=== PATIENT | female | born 1930 | race Caucasian/White ===

== ENCOUNTER 2017-02-22 07:54 | Emergency (ER) | payer MEDICARE, OTHER ==
[~2017-02-22] VITALS: Ht 160 cm; Wt 44.5 kg
[2017-02-22 09:52] VITALS: BP 142/65
== END 2017-02-22 09:52 | disposition home or self-care (01) ==
LOC: ER 07:54
DX: I83.93 Asymptomatic varicose veins of bilateral lower extremities (principal); Z88.2 Allergy status to sulfonamides
CPT/HCPCS: 93971